=== PATIENT | female | born 1975 | race African-American/Black ===

== ENCOUNTER 2017-03-16 09:43 | Outpatient (CLI) | payer BC ==
--- NOTE | 2017-03-16 11:23 | Ultrasound Report ---
ULTRASOUND OB LESS THAN 14 WEEKS - TRANSABDOMINAL AND TRANSVAGINAL INDICATION: dating. COMPARISON: None similar at this institution. FINDINGS: Transabdominal and transvaginal pelvic sonography performed in this patient with LMP of 01/22/2017 and estimated menstrual age of 7 weeks and 4 days. It demonstrates an anteverted, gravid uterus estimated at 7.8 x 4.4 x 6.4 cm with a single, viable intrauterine gestation with heart rate of 123 beats per minute. Mean gestational sac diameter of 2.09 cm corresponds to 7 weeks and zero days. Mean crown-rump length of 0.46 cm corresponds to 6 weeks and 1 day. A 4 mm yolk sac also seen. Imaged urinary bladder suboptimally distended. Cervix closed. Few nabothian cysts, the largest 1.2 x 0.8 cm. Right ovary is 2.3 x 1.8 x 1.2 cm. Left ovary is 2.9 x 2.5 x 2.3 cm with an intrinsic 1.9 x 1.6 cm cyst/possible corpus luteum. CONCLUSION: 1. Single, live intrauterine gestation with an ultrasound estimated age of 6 weeks and 4 days and LEANDER of 11/05/2017. 2. Other findings, as above. Thank you for the opportunity to participate in this patient's care.
== END 2017-03-16 09:44 | disposition home or self-care (01) ==
LOC: US 09:43
PROVIDERS: ATTEND Obstetrics & Gynecology
DX: O34.41 Maternal care for other abnormalities of cervix, first trimester (principal); O34.591 Maternal care for other abnormalities of gravid uterus, first trimester; O26.891 Other specified pregnancy related conditions, first trimester; N32.89 Other specified disorders of bladder; Z3A.01 Less than 8 weeks gestation of pregnancy
CPT/HCPCS: 76801; 76817

== ENCOUNTER 2017-04-13 14:54 | Outpatient (CLI) | payer BC ==
[2017-04-13 17:17] LABS: HIV-1 Antigen p24 Non React (Non React); HIVR-1/2 Ab Non React (Non React)
== END 2017-04-13 14:55 | disposition home or self-care (01) ==
LOC: LAB 14:54
PROVIDERS: ATTEND Midwife
DX: Z34.00 Encounter for supervision of normal first pregnancy, unspecified trimester (principal)
CPT/HCPCS: 36415; 86850; 86900; 86901; 87086; 87806

== ENCOUNTER 2017-11-12 16:31 | Outpatient (CLI) | payer OTHER ==
[2017-11-12 17:12] VITALS: BP 117/75
--- NOTE | 2017-11-12 20:26 | Ultrasound Report ---
FINAL REPORT PROCEDURE: US OB LIMITED TECHNIQUE: Real-time limited sonographic examination was performed for each fetus with image documentation (1 or more fetuses). CPT 69123 Sonographic evaluation for breathing, movement, tone, and amniotic fluid volume was performed. CPT 85680 HISTORY: well being. post dates COMPARISON: No prior studies are available for comparison. FINDINGS: FETUS IUP: Single living intrauterine . Position: Cephalic. Heart rate and rhythm: 133 BPM, Regular . anatomic survey: Not performed. Biometric measurements were not performed. Amniotic fluid volume: Normal-score 2. At least one vertical pocket > 2 cm or more in vertical axis. Amniotic fluid index measures 9.8 centimeters. breathing: Normal-score 2. movement: Normal-score 2. tone: Normal. Score: 8 of 8. IMPRESSION: Normal biophysical profile score. Amniotic fluid index measures 9.8 centimeters. PROCEDURE: TECHNIQUE: HISTORY: COMPARISON: FINDINGS: IMPRESSION:
--- NOTE | 2017-11-12 20:26 | Ultrasound Report ---
FINAL REPORT PROCEDURE: US OB LIMITED TECHNIQUE: Real-time limited sonographic examination was performed for each fetus with image documentation (1 or more fetuses). CPT 67260 Sonographic evaluation for breathing, movement, tone, and amniotic fluid volume was performed. CPT 02632 HISTORY: well being. post dates COMPARISON: No prior studies are available for comparison. FINDINGS: FETUS IUP: Single living intrauterine . Position: Cephalic. Heart rate and rhythm: 133 BPM, Regular . anatomic survey: Not performed. Biometric measurements were not performed. Amniotic fluid volume: Normal-score 2. At least one vertical pocket > 2 cm or more in vertical axis. Amniotic fluid index measures 9.8 centimeters. breathing: Normal-score 2. movement: Normal-score 2. tone: Normal. Score: 8 of 8. IMPRESSION: Normal biophysical profile score. Amniotic fluid index measures 9.8 centimeters.
== END 2017-11-12 19:32 | disposition home or self-care (01) ==
LOC: TRG 16:31
PROVIDERS: ATTEND Obstetrics & Gynecology
DX: O09.523 Supervision of elderly multigravida, third trimester (principal); O48.0 Post-term pregnancy; Z3A.41 41 weeks gestation of pregnancy
CPT/HCPCS: 59025; 76815; 76819

== ENCOUNTER 2017-11-13 10:08 | Inpatient (IN) | payer OTHER ==
[2017-11-13] MEDS ORDERED: XYLOCAINE 2% INFILTRATI ONE ×2 (12:21→12:56)
[2017-11-13] MEDS ORDERED: BRETHINE SUB-Q PRN ×2 (12:21→12:56)
[2017-11-13] MEDS ORDERED: ePHEDrine SULFATE IV PRN ×2 (12:21→12:56)
[2017-11-13] MEDS ORDERED: BRETHINE IVP PRN ×2 (12:21→13:01)
[2017-11-13] MEDS ORDERED: MINERAL OIL PO PRN ×2 (12:21→22:00)
[2017-11-13] MEDS ORDERED: CYTOTEC VAGINAL ONE (12:21)
[2017-11-13] MEDS ORDERED: LACTATED RINGERS 1,000 ML IV SCH (13:00)
[2017-11-13] MEDS ORDERED: PITOCin/NS 20 UNIT/1000ML DRIP 20 UNITS/1,000 ML BAG IV SCH ×2 (13:00)
[2017-11-13] MEDS ORDERED: POLYCILLIN/NS 2 GM/100 ML 2 GM/100 ML BAG IV ONE (13:02)
[2017-11-13 13:41] LABS: Hematocrit 38.9 % (30.3-42.9); Hemoglobin 13.6 gm/dl (10.1-14.3); Mean Corpuscular HGB Conc 35 % (30-34); Mean Corpuscular Hemoglobin 34 pg (28-32); Mean Corpuscular Volume 98 fl (79-97); Platelet Count 108 K/mm3 (140-440); Red Blood Count 3.96 M/mm3 (3.65-5.03); Red Cell Distribution Width 14.2 % (13.2-15.2)
[2017-11-13] MEDS: LACTATED RINGERS 1,000 ML IV SCH ×2 (14:53→22:37)
[2017-11-13] MEDS: CYTOTEC VG SCH ×2 (14:54→19:10)
[2017-11-13] MEDS: POLYCILLIN/NS 1 GM/50 ML 1 GM/50 ML BAG IV SCH ×2 (19:11→22:36)
[2017-11-13] MEDS: STADOL IV PRN ×2 (19:39→22:31)
[2017-11-13] MEDS ORDERED: PITOCin/NS 30 UNIT/500ML 30,000 MILLIUNITS/500 ML BAG IV ONE (21:31)
[2017-11-13] MEDS ORDERED: PITOCin/NS 30 UNIT/500ML 30 UNITS/500 ML BAG IV SCH (22:00)
[2017-11-14] MEDS ORDERED: ePHEDrine SULFATE IV PRN (01:37)
[2017-11-14] MEDS ORDERED: NARCAN 2 MG/2 ML IV PRN (01:37)
--- NOTE | 2017-11-14 01:37 | Anesthesia Consultation ---
Anesthesia Consult and Med Hx Date of service: 11/14/17 - Airway Anesthetic Teeth Evaluation: Good ROM Head & Neck: Adequate Mental/Hyoid Distance: Adequate Mallampati Class: Class II Intubation Access Assessment: Good - Pulmonary Exam CTA: Yes - Cardiac Exam Cardiac Exam: No Murmur - Pre-Operative Health Status ASA Pre-Surgery Classification: ASA2 Proposed Anesthetic Plan: Epidural - Pulmonary Hx Asthma: No COPD: No - Cardiovascular System Hx Hypertension: No - Central Nervous System Hx Seizures: No Hx Psychiatric Problems: No - Endocrine Hx Renal Disease: No Hx End Stage Renal Disease: No Hx Hypothyroidism: No Hx Hyperthyroidism: No - Hematic Hx Anemia: No Hx Sickle Cell Disease: No - Other Systems Hx Alcohol Use: No
[2017-11-14] MEDS: LACTATED RINGERS 1,000 ML IV SCH ×2 (01:43→03:00)
[2017-11-14] MEDS ORDERED: fentaNYL-BUPIV 2 MCG/ML-0.125% 200 MCG/100 ML BAG EPIDURAL SCH (02:00)
[2017-11-14] MEDS: POLYCILLIN/NS 1 GM/50 ML 1 GM/50 ML BAG IV SCH (02:45)
[2017-11-14] MEDS ORDERED: ANCEF/STERILE WATER 2 GM/20 ML IV ONE (04:51)
[2017-11-14] MEDS ORDERED: REGLAN ONE (04:57)
[2017-11-14] MEDS ORDERED: PEPCID IV ONE ×2 (04:57→05:00)
[2017-11-14] MEDS ORDERED: ANCEF/STERILE WATER 2 GM/20 ML 2 GM/20 ML SYRINGE IV ONE (04:57)
[2017-11-14] MEDS ORDERED: BICITRA ONE (04:57)
[2017-11-14] MEDS ORDERED: WATER FOR IRRIG STERILE IR ONE (05:00)
[2017-11-14] MEDS ORDERED: NACL 0.9% IR ONE (05:00)
[2017-11-14] MEDS ORDERED: XYLOCAINE MPF 2% ONE ×4 (05:13)
[2017-11-14] MEDS ORDERED: MORPHINE ONE ×2 (05:13)
--- NOTE | 2017-11-14 05:46 | History and Physical Report ---
History of Present Illness Date of examination: 11/14/17 Date of admission: 11/13/17 10:09 Chief complaint: decreased movement History of present illness: 42y/o @ 41+2 weeks presents with the complaint decreased movement. The patient was admitted for induction. She initiated her care in the first trimester at [facility]. 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 The patient is GBS positive. She denied uterine contractions or leakage of fluid at the time of presentation. Past History Past Medical History: other (neuropathic thrombocytopenia) Past Surgical History: no surgical history Social history: - Obstetrical History Expected Date of Delivery: 11/05/17 Actual Gestation: 41 Week(s) 2 Day(s) : 1 Para: 0 Hx # Term Pregnancies: 0 Number of Pregnancies: 0 Spontaneous Abortions: 0 Induced : 0 Number of Living Children: 0 Medications and Allergies Allergies Allergy/AdvReac Type Severity Reaction Status Date / Time No Known Allergies Allergy Verified 11/13/17 10:21 Home Medications Medication Instructions Recorded Confirmed Last Taken Type Ferrous Sulfate [Iron] 325 mg PO DAILY 11/13/17 11/13/17 1 Day Ago History ~11/12/17 Pnv,Calcium 72/Iron/Folic Acid 1 each PO DAILY 11/13/17 11/13/17 1 Day Ago History [Pnv Plus Multivit Tab] ~11/12/17 Active Meds: Active Medications Butorphanol Tartrate (Stadol) 2 mg IV Q2H PRN PRN Reason: Pain , Severe (7-10) Last Admin: 11/13/17 22:31 Dose: 2 mg Ephedrine Sulfate (Ephedrine Sulfate) 10 mg IV Q2M PRN PRN Reason: Hypotension Lactated Ringer's (Lactated Ringers) 1,000 mls @ 125 mls/hr IV DIRECT DAVE Ampicillin Sodium (Polycillin/Ns 1 Gm/50 Ml) 1 gm in 50 mls @ 100 mls/hr IV Q4H DAVE PRN Reason: Protocol Last Admin: 11/14/17 02:45 Dose: 100 mls/hr Lactated Ringer's (Lactated Ringers) 1,000 mls @ 125 mls/hr IV DIRECT DAVE Last Admin: 11/14/17 03:00 Dose: 125 mls/hr Oxytocin/Sodium Chloride (Pitocin/Ns 20 Unit/1000ml Drip) 20 units in 1,000 mls @ 125 mls/hr IV DIRECT DAVE Oxytocin/Sodium Chloride (Pitocin/Ns 30 Unit/500ml) 30 units in 500 mls @ 1 mls /hr IV TITR DAVE; 1 MILLIUNITS/MIN PRN Reason: Protocol Fentanyl/Bupivacaine/Sodium Chlor (Fentanyl-Bupiv 2 Mcg/Ml-0.125%) 200 mcg in 100 mls @ 12 mls/hr EPIDURAL TITR DAVE PRN Reason: Protocol Last Admin: 11/14/17 02:17 Dose: 12 mls/hr Mineral Oil (Mineral Oil) 30 ml PO QHS PRN PRN Reason: Constipation Misoprostol (Cytotec) 25 mcg VG Q4H DAVE Last Admin: 11/13/17 19:10 Dose: 25 mcg Naloxone HCl (Narcan 2 Mg/2 Ml) 0.2 mg IV Q5M PRN PRN Reason: Respiratory sedation Terbutaline Sulfate (Brethine) 0.25 mg SUB-Q ONCE PRN PRN Reason: Hyperstimulation/Hypertonicity Terbutaline Sulfate (Brethine) 0.25 mg IVP ONCE PRN PRN Reason: Hyperstimulation/Hypertonicity Review of Systems All systems: negative - Vital Signs Vital signs: Vital Signs Pulse BP 85 114/75 11/13/17 12:50 11/13/17 12:50 Temp Pulse Resp BP Pulse Ox 96.8 F L 69 20 122/60 100 11/14/17 03:56 11/14/17 04:45 11/14/17 00:50 11/14/17 04:02 11/14/17 04:45 - Physical Exam Breasts: Positive: deferred Cardiovascular: Regular rate Lungs: Positive: Clear to auscultation Abdomen: Positive: normal appearance Results Result Diagrams: 11/13/17 13:15 Abnormal lab results 11/13/17 Range/Units 13:15 MCV 98 H (79-97) fl MCH 34 H (28-32) pg MCHC 35 H (30-34) % Plt Count 108 L (140-440) K/mm3 All other labs normal. Assessment and Plan - Patient Problems (1) Post-term Current Visit: Yes Status: Acute Plan to address problem: She was admitted to labor and delivery for induction of labor (2) Decreased movement Current Visit: Yes Status: Acute
--- NOTE | 2017-11-14 05:47 | Procedure Note ---
OB Delivery Note - Delivery Date of Delivery: 11/14/17 Surgeon: NEVILLE DELEON Estimated blood loss: other (600 mL) - Section Preop diagnosis: nonreassuring FHR tracing Postop diagnosis: same section procedure: section, primary low transverse Disposition: PACU Complications: none - A at 1 minute: 8 at 5 minutes: 9 Infant Gender: Female (weight 6 lbs. 1 oz.)
--- NOTE | 2017-11-14 05:52 | Operative Report ---
Operative Report Operative Report: Date of surgery: 11/14/2017 Preoperative diagnosis: at 41+2 weeks; nonreassuring heart rate tracing; advanced maternal age; idiopathic thrombocytopenia Postoperative diagnosis: Same as above Procedure: Primary low-transverse delivery Surgeon: Morelia Hendrickson M.D. Anesthesia: Regional Estimated blood loss: 600 mL IV fluids: 800 mL Urine Output: 100 mL Findings: Liveborn female with Apgars of 8 and 9 weight 6 lbs. 1 oz. Indications: 42-year-old at 41+2 weeks who was admitted for decreased movement. Her intrapartum course was complicated by a nonreassuring heart rate tracing and bradycardia to the 60s during the second stage of labor. The patient had progressed to complete complete +1. Intr- Operative findings of a triple nuchal cord. Procedure: The patient was taken to the operating room and given regional anesthesia without complication. She was prepped and draped in a normal sterile fashion. A Pfannenstiel skin incision was made down to layer the fascia which was nicked in the midline extended laterally with the Bovie cautery. The superior aspect of the rectus fascia was grasped with Karlene clamps x2 and the rectus muscles off sharply. This was done in inferior fashion as well. The rectus muscle midline and peritoneum entered bluntly. An Demond retractor was then inserted. A bladder blade was placed. The vesicouterine peritoneum was then entered sharply with Metzenbaum scissors. A bladder flap was created digitally. A low transverse uterine incision was then made and extended digitally. There was clear fluid upon entry into the uterine cavity. The head was delivered through the incision with fundal pressure. The infant was noted to have a triple nuchal cord that was manually reduced. The cord was clamped and cut x2 and was passed off to pediatrics. The placenta was then manually extracted. The uterus was then exteriorized and cleared of clots and debris. The uterine incision was then closed in a running locked fashion with 0 Vicryl additional imbricating stitch was applied for 2 layer closure. The serosa was then reapproximated with 3-0 Vicryl. The posterior cul-de-sac was then copiously irrigated. The uterus was replaced back into the abdomen and pelvis were the gutters were then irrigated. The Demond retractor was then removed. The peritoneum was then reapproximated with 3-0 Vicryl incorporating the rectus muscle. The fascia was then closed with 0 Vicryl in a running fashion. The skin was then reapproximated with 3-0 Monocryl on a Flako needle subcuticular fashion. Steri-Strips to place across the incision and a Crede procedures performed at the end of the surgery. A pressure dressing was applied to the incision. The surgery productive of a liveborn female with Apgars of 8 and 9 weight 6 lbs. 1 oz. The patient was taken to the recovery room in stable condition. All sponge laps and needle counts correct x2.
[2017-11-14] MEDS ORDERED: TUCKS PAD TP PRN (05:53)
[2017-11-14] MEDS ORDERED: LANSINOH TP PRN (05:53)
[2017-11-14] MEDS ORDERED: TYLENOL PO PRN (05:53)
[2017-11-14] MEDS ORDERED: MYLICON PO PRN (05:53)
[2017-11-14] MEDS ORDERED: NARCAN 0.4 MG/1 ML IV PRN (05:53)
[2017-11-14] MEDS ORDERED: TORADOL IV PRN (05:53)
[2017-11-14] MEDS ORDERED: MILK OF MAGNESIA PO PRN (05:53)
[2017-11-14] MEDS ORDERED: PITOCin/NS 20 UNIT/1000ML DRIP 20 UNITS/1,000 ML BAG IV SCH (06:00)
[2017-11-14] MEDS ORDERED: SODIUM CHLORIDE FLUSH SYRINGE 10 ML IV NR (06:00)
[2017-11-14] MEDS ORDERED: REGLAN IV ONE (06:34)
[2017-11-14] MEDS ORDERED: BICITRA PO ONE (06:34)
[2017-11-14] MEDS ORDERED: ANCEF/STERILE WATER 2 GM/20 ML IV NR (09:00)
[2017-11-14] MEDS ORDERED: MORPHINE IV PRN (09:48)
[2017-11-14] MEDS: D5LR 1,000 ML IV SCH (17:01)
[2017-11-14 20:34] LABS: Hematocrit 30.7 % (30.3-42.9); Hemoglobin 10.7 gm/dl (10.1-14.3)
[2017-11-15] MEDS: D5LR 1,000 ML IV SCH (00:28)
[2017-11-15] MEDS: PERCOCET 5/325 PO PRN ×2 (09:14→17:44)
[2017-11-15] MEDS: MOTRIN PO PRN ×2 (09:14→17:43)
--- NOTE | 2017-11-15 12:52 | Progress Note ---
Assessment and Plan - Patient Problems (1) Post-term Current Visit: Yes Status: Acute Plan to address problem: Will consult helicopter specialist once available Routine postoperative care (2) Decreased movement Current Visit: Yes Status: Acute Subjective - Subjective Date of service: 11/15/17 Interval history: The patient reports having some incisional pain. She is attempting to breast- feed but is having difficulty secondary to having flat nipples. She is tolerating her diet without complication. Patient reports: appetite normal, voiding normally : doing well Objective - Vital Signs Latest vital signs: Vital Signs Temp Pulse Resp BP Pulse Ox 11/15/17 09:00 98.3 F 83 18 112/73 11/15/17 00:00 98.9 F 89 18 102/68 11/14/17 20:15 98.2 F 98 H 18 103/64 11/14/17 16:00 98.2 F 98 H 18 106/65 98 11/14/17 13:00 98 F 74 18 103/66 Intake and Output 11/14/17 11/15/17 11/15/17 22:59 06:59 14:59 Intake Total 360 931.25 240 Output Total 800 Balance -440 931.25 240 Intake: IV 931.25 D5lr 1,000 ml @ 125 mls/ 931.25 hr IV DIRECT DAVE Rx#: [id number] Oral 360 240 Output: Urine 800 Indwelling Catheter 800 Other: Total, Intake Amount 120 240 Total, Output Amount 400 # Voids Void 1 - Exam Abdomen: Present: normal appearance, soft Uterus: Present: normal, firm Incision: Present: dressed
--- NOTE | 2017-11-16 08:23 | Progress Note ---
Assessment and Plan A/P POD#2 c/sec for nrfht bonding well breast feeding unsure of control +flatus ambulating well pain controlled d/c home to f/u in 2 weeks for incision check Subjective - Subjective Date of service: 11/16/17 Principal diagnosis: c/sec for nrfht Patient reports: appetite normal, voiding normally, pain well controlled, flatus , ambulating normally [place]: doing well, nursing well Objective - Vital Signs Latest vital signs: Vital Signs Temp Pulse Resp BP 11/16/17 00:00 98.0 F 86 18 114/62 11/15/17 17:11 98.5 F 89 18 101/65 11/15/17 09:00 98.3 F 83 18 112/73 Intake and Output 11/15/17 11/16/17 11/16/17 23:59 07:59 15:59 Intake Total 240 Balance 240 Intake: Oral 240 Other: Total, Intake Amount 120 # Voids Void 1 - Exam Breasts: Present: normal Cardiovascular: Present: Regular rate Lungs: Present: Clear to auscultation, Normal air movement Abdomen: Present: normal appearance, soft, normal bowel sounds. Absent: distention, tenderness, guarding Vulva: both: normal Uterus: Present: normal, firm, fundal height below umbilicus. Absent: bogginess , tenderness Extremities: Present: normal Deep Tendon Reflex Grade: Normal +2 Incision: Present: normal, dry, intact
--- NOTE | 2017-11-16 08:26 | Discharge Summary ---
Providers - Providers Date of Admission: 11/13/17 10:09 Date of discharge: 11/16/17 Attending physician: NEVILLE DELEON Primary care physician: NEVILLE DELEON Hospitalization Reason for admission: induction of labor, IUP at term Delivery: Procedure: section, primary low transverse Episiotomy: none Laceration: none Incision: normal, dry, intact Other procedures: none complications: none Discharge diagnosis: IUP at term delivered baby: female Hospital course: patient did well postop. ambulating well. tolerating diet and pain controlled d/c home to follow up in 2 weeks for incision check Condition at discharge: Good Disposition: [id number] TO HOME OR SELFCARE Plan - Discharge Medications Prescriptions: Docusate Sodium [Colace] 100 mg PO BID PRN #60 capsule PRN Reason: Constipation Ibuprofen [Motrin] 800 mg PO Q8HR PRN #60 tablet PRN Reason: Pain Oxycodone HCl/Acetaminophen [Percocet 7.5/325 mg] 1 each PO Q6HR PRN #45 tablet PRN Reason: Pain - Provider Discharge Summary Activity: routine, no sex for 6 weeks, no strenuous exercise Diet: routine Instructions: routine Additional instructions: [] Smoking cessation referral if applicable(refer to patient education folder for contact #) [] Refer to [facility]'s [facility] Booklet Call your doctor immediately for: * Fever > 100.5 * Heavy vaginal bleeding ( >1 pad per hour) * Severe persistent headache * Shortness of breath * Reddened, hot, painful area to leg or breast * Drainage or odor from incision. * Keep incision clean and dry at all times and follow doctor's instructions regarding bathing/showering - Follow up plan Follow up: NEVILLE DELEON MD [Primary Care Provider] - 14 Days
[2017-11-16 08:27] VITALS: BP 114/74
[2017-11-16] MEDS: MOTRIN PO PRN (11:29)
== END 2017-11-16 15:35 | disposition home or self-care (01) | DRG 765 ==
LOC: TRG 10:08 → LD 10:09 → TRG 10:09 → OB 11-14 07:26
PROVIDERS: ADMIT Obstetrics & Gynecology; ATTEND Obstetrics & Gynecology
PROC: 10D00Z1 Extraction of Products of Conception, Low, Open Approach (ICD-10-PCS; principal; 2017-11-14)
DX: O99.12 Other diseases of the blood and blood-forming organs and certain disorders involving the immune mechanism complicating childbirth (principal); D69.3 Immune thrombocytopenic purpura; O75.0 Maternal distress during labor and delivery; Z3A.41 41 weeks gestation of pregnancy; Z37.0 Single live birth; O99.824 Streptococcus B carrier state complicating childbirth; O36.8130 Decreased fetal movements, third trimester, not applicable or unspecified; O76 Abnormality in fetal heart rate and rhythm complicating labor and delivery
CPT/HCPCS: 36415; 85014; 85018; 85027; 86592; 86850; 86900; 86901; 99211; G0463; J0290; J0595; J0690; J1885; J2270; J2590; J2765; J7120; J7121